=== PATIENT | female | born 1975 | race African-American/Black ===

== ENCOUNTER 2018-10-10 11:36 | Emergency (ER) | END 2018-10-10 13:31 | disposition home or self-care (01) ==

== ENCOUNTER 2018-10-17 11:16 | Emergency (ER) | payer MEDICAID ==
[~2018-10-17] VITALS: Wt 92.9 kg
[~2018-10-17 11:16] MED LIST: NAPR-985 PO
[2018-10-17 11:20] VITALS: BP 149/88; PULSE 78; RESP 16
[2018-10-17] MEDS ORDERED: MUPI22OI2 TOP (12:29)
--- NOTE | 2018-10-17 13:14 | ERD ---
ER Documentation Chief Complaint Chief Complaint POSSIBLE INSECT BITE ON BACK OF NECK X2 WEEKS HPI Patient is a 42-year-old female presents ER for concerns of "spider bite" on the back of her neck times 2 days. Patient states the affected area is itchy in nature. Patient denies any headache, nausea, vomiting, neck stiffness, fevers, chills. Patient is not sure where she got the bite from. Patient denies any recent travel or outdoor activities. Patient denies any difficulty breathing, chest pain, shortness of breath, lip swelling, tongue swelling. ROS All systems reviewed and are negative except as per history of present illness. Medications Home Meds Active Scripts Mupirocin* (Bactroban*) 2% -22 Gram Oint...g., 1 APPLIC TOP BID for 7 Days, EA Prov:RENUKA GANN PA-C 10/17/18 Naproxen* (Naprosyn*) 500 Mg Tablet, 500 MG PO BID PRN for PAIN AND/OR INFLAMMATION, #30 TAB Prov:MONICA MCCOY PA-C 10/10/18 Allergies Allergies: Coded Allergies: No Known Allergy (Unverified , 10/10/18) PMhx/Soc History of Surgery: Yes (2 C SECTIONS) Anesthesia Reaction: No Hx Neurological Disorder: No Hx Respiratory Disorders: No Hx Cardiac Disorders: Yes (PRE ECLAMPSIA) Hx Psychiatric Problems: No Hx Miscellaneous Medical Probl: No Hx Alcohol Use: No FmHx Family History: No diabetes Physical Exam Vitals Vital Signs Date Temp Pulse Resp B/P (MAP) Pulse Ox O2 O2 Flow FiO2 Time Delivery Rate 10/17/18 97.9 78 16 149/88 98 11:20 (108) Physical Exam GENERAL: Well-developed, well-nourished female. Appears in no acute distress. HEAD: Normocephalic, atraumatic. EYES: Pupils are equally reactive bilaterally. EOMs grossly intact. No conjunctival erythema. ENT: Moist mucous membranes. No uvula deviation. No kissing tonsils. No lip swelling. No tongue swelling. NECK: Supple. No meningismus. Normal range of motion of the neck. No cervical midline tenderness. LUNG: Clear to auscultation bilaterally. No rhonchi, wheezing, rales or coarse breath sounds. EXTREMITIES: Equal pulses bilaterally. No peripheral clubbing, cyanosis or edema. No unilateral leg swelling. NEUROLOGIC: Alert and oriented. Moving all four extremities without any difficulty. Normal speech. Steady gait. SKIN: One centimeter round, erythematous lesion noted in the right cervical neck. No streaking. No fluctuance or induration. nontender to palpation. Procedures/MDM MEDICAL DECISION MAKING: This is a 42-year-old female who presents the ER for concerns of a lesion to the back of her neck times 2 days vital signs were reviewed. Patient was afebrile. Patient is not diabetic. Skin exam revealed concerns of a possible insect bite. Low suspicion for deep space infection, necrotizing fasciitis, sepsis, gangrene, Clayton Royer syndrome, fungal infection, abscess, cellulitis, meningitis, cervical spine injury, fracture or dislocation. Patient will be given prescription for mupirocin ointment advised to return here for any new or worsening symptoms. PRESCRIPTIONS: Mupirocin ointment DISCHARGE: At this time, patient is stable for discharge and outpatient management. I have advised the patient to avoid any new products, creams or possible allergens. I have advised the patient to avoid scratching the lesions. I have instructed the patient to follow-up with his/her primary care physician in 1-2 days. If symptoms persist, patient may need to see a ankle patch molder for further examinations and testing. I have instructed the patient to promptly return to the ER at any time for any new or worsening symptoms including increased pain, fever, redness, swelling, warmth, difficulty breathing or vomiting. The patient and/or family expressed understanding of and agreement with this plan. All questions were answered. Home care instructions were provided. Disclaimer: Inadvertent spelling and grammatical errors are likely due to EHR/dictation software use and do not reflect on the overall quality of patient care. Also, please note that the electronic time recorded on this note does not necessarily reflect the actual time of the patient encounter. Departure Diagnosis: Primary Impression: Insect bite Encounter type: initial encounter Site of insect bite: unspecified site Qualified Codes: W57.XXXA - Bitten or stung by nonvenomous insect and other nonvenomous arthropods, initial encounter Condition: Stable Patient Instructions: Insect Bite Referrals: COMMUNITY CLINICS YOU HAVE RECEIVED A MEDICAL SCREENING EXAM AND THE RESULTS INDICATE THAT YOU DO NOT HAVE A CONDITION THAT REQUIRES URGENT TREATMENT IN THE EMERGENCY DEPARTMENT. FURTHER EVALUATION AND TREATMENT OF YOUR CONDITION CAN WAIT UNTIL YOU ARE SEEN IN YOUR DOCTORS OFFICE WITHIN THE NEXT 1-2 DAYS. IT IS YOUR RESPONSIBILITY TO MAKE AN APPOINTMENT FOR FOLOW-UP CARE. IF YOU HAVE A PRIMARY DOCTOR --you should call your primary doctor and schedule an appointment IF YOU DO NOT HAVE A PRIMARY DOCTOR YOU CAN CALL OUR PHYSICIAN REFERRAL HOTLINE AT IF YOU CAN NOT AFFORD TO SEE A PHYSICIAN YOU CAN CHOSE FROM THE FOLLOWING [facility] [address] [place] [facility] [address] [facility] [address] [facility] [address] [facility] [address] [facility]. [facility] [address] [facility]. [facility] YOU HAVE RECEIVED A MEDICAL SCREENING EXAM AND THE RESULTS INDICATE THAT YOU DO NOT HAVE A CONDITION THAT REQUIRES URGENT TREATMENT IN THE EMERGENCY DEPARTMENT. FURTHER EVALUATION AND TREATMENT OF YOUR CONDITION CAN WAIT UNTIL YOU ARE SEEN IN YOUR DOCTORS OFFICE WITHIN THE NEXT 1-2 DAYS. IT IS YOUR RESPONSIBILITY TO MAKE AN APPOINTMENT FOR FOLOW-UP CARE. IF YOU HAVE A PRIMARY DOCTOR --you should call your primary doctor and schedule and appointment IF YOU DO NOT HAVE A PRIMARY DOCTOR YOU CAN CALL OUR PHYSICIAN REFERRAL HOTLINE AT . IF YOU CAN NOT AFFORD TO SEE A PHYSICIAN YOU CAN CHOSE FROM THE FOLLOWING [facility] INSTITUTIONS: [facility] [address] [place] [address] [facility] [address] [place] [address] [facility] + [facility] [address] [place] [address] Additional Instructions: Call your primary care doctor TOMORROW for an appointment during the next 1-2 days.See the doctor sooner or return here if your condition worsens before your appointment time. RENUKA GANN PA-C Oct 17, 2018 13:14
== END 2018-10-17 13:01 | disposition home or self-care (01) ==
LOC: FTE 11:16
DX: T63.391A Toxic effect of venom of other spider, accidental (unintentional), initial encounter (principal)
CPT/HCPCS: 99283